=== PATIENT | female | born 2000 | race Caucasian/White ===

== ENCOUNTER 2021-05-07 14:56 | Emergency (ER) | payer OTHER ==
[2021-05-07 18:35] LABS: HEMOGLOBIN 14.2 gm/dl (12.3-15.3); RED BLOOD COUNT 4.75 M/UL (4.00-5.10); WHITE BLOOD COUNT 9.9 K/UL (4.5-11.0)
[2021-05-07 18:53] LABS: BUN/CREATININE RATIO 9 (0-10)
[2021-05-07] MEDS ORDERED: K-DUR TAB 20 M20 MEQ PO (20:54)
== END 2021-05-07 21:07 | disposition home or self-care (01) ==
LOC: ER1 14:56
PROVIDERS: Family Medicine
DX: R55 Syncope and collapse (principal); E87.6 Hypokalemia; F17.200 Nicotine dependence, unspecified, uncomplicated; Z88.0 Allergy status to penicillin
CPT/HCPCS: 70450; 71045; 80053; 81001; 82550; 82553; 83735; 83874; 84484; 84703; 85025; 93005; 96374; 96375; 99284; J1885; J2405; J7030